=== PATIENT | female | born 1950 | race Caucasian/White ===

== ENCOUNTER → 2022-03-22 12:46 | Outpatient (CLI) | payer OTHER, MEDICAID, SELFPAY ==
--- NOTE | 2022-03-22 | DI.CT.S_ITS ---
PROCEDURE: CT SINUS SCREEN WO CON INDICATIONS: Other specified disorders of nose and nasal sinuses TECHNIQUE: Noncontrast 3.0 mm axial images acquired from the frontal sinuses to the mid-sella, with coronal and sagittal reformats. For radiation dose reduction, the following was used: automated exposure control, adjustment of mA and/or kV according to patient size. COMPARISON: None. FINDINGS: Image quality: Excellent. Maxillary Sinuses: There is near complete opacification of the left maxillary sinus. The medial wall of the left maxillary sinus is demineralized and bowed medially. No significant right maxillary sinus abnormality can be seen. Ethmoid Air Cells: No bony remodeling or destruction. Sinuses are clear. Sphenoid Sinuses: No bony remodeling or destruction. Sinuses are clear. Frontal Sinuses: No bony remodeling or destruction. Sinuses are clear. Ostiomeatal Complexes: The left ostiomeatal complex is not well seen. The right ostiomeatal complex is highly constitutionally narrowed, with right-sided Carla cells. Miscellaneous: Visualized intra-orbital contents are normal. 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 There is [id number] rightward nasal septal deviation. Abnormal soft tissue can be seen within the left nasal cavity, including within the nasopharynx. There is partial demineralization of the left-sided bony turbinates. IMPRESSION: Abnormal soft tissue opacity can be seen within the left nasal cavity. Polyps are suspected, although please correlate with masses. Focal left maxillary sinus disease is seen. The medial wall of the maxillary sinus is demineralized and bowed medially. Chronic sinus disease is suspected. The left ostiomeatal complex is not well seen and is believed to be completely opacified. The right ostiomeatal complex is highly constitutionally narrowed. 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 [id number] rightward nasal septal deviation. Dictated by: Mahamed Garcia M.D. on 03/22/2022 at 12:40 Approved by: Mahamed Garcia M.D. on 03/22/2022 at 12:43
== END ==
PROVIDERS: PCP Nurse Practitioner Family; Referring Provider Otolaryngology; Visit Provider Otolaryngology
DX: J32.4 Chronic pansinusitis (principal); J34.89 Other specified disorders of nose and nasal sinuses; J34.2 Deviated nasal septum; J34.3 Hypertrophy of nasal turbinates
CPT/HCPCS: 70486